=== PATIENT | male | born 1965 | race Caucasian/White ===

== ENCOUNTER 2021-09-17 11:46 | Emergency (ER) | payer BC, OTHER ==
[2021-09-17] MEDS ORDERED: Sodium Chloride 0.9% 10 ML Syringe FLUSH PRN (12:13)
[2021-09-17 14:44] LABS: CORONAVIRUS COVID-19 NAA NEGATIVE (NEGATIVE)
== END 2021-09-17 15:04 | disposition home or self-care (01) ==
LOC: JD.ED 11:46
DX: R42 Dizziness and giddiness (principal); R06.02 Shortness of breath; Z72.0 Tobacco use; Z20.822 Contact with and (suspected) exposure to COVID-19
CPT/HCPCS: 0240U; 36415; 71046; 80053; 84484; 85025; 85379; 86140; 93005; 93225; 93226; 99285; J3490